=== PATIENT | female | born 1995 | race Caucasian/White ===

== ENCOUNTER 2019-11-18 03:11 | Inpatient (IN) ==
[2019-11-18] MEDS ORDERED: OXYTOCIN 30 UNITS/500 ML BAG IV PRN ×2 (03:50→07:49)
[2019-11-18] MEDS ORDERED: PENICILLIN G POTASSIUM 6 MU in DEXTROSE 5% 250 ML IV STA (03:50)
[2019-11-18] MEDS ORDERED: LACTATED RINGER'S 1,000 ML IV PRN (03:50)
[2019-11-18] MEDS ORDERED: PENICILLIN G POTASSIUM 3 MU in DEXTROSE 5% 100 ML IV PRN (03:50)
[2019-11-18 04:26] LABS: Hematocrit (blood only) 33.9 % (37-47); Hemoglobin 10.9 g/dL (12.0-16.0); Mean Corpuscular Hemoglobin 28.4 pg (25-34); Mean Corpuscular Volume 88.3 fL (80-100); Mean Platelet Volume 11.7 fL (7.4-10.4); Platelet Count 216 K/uL (130-400); RDW Coefficient of Variation 16.3 % (11.5-14.5); RDW Standard Deviation 52.4 fL (36.4-46.3); Red Blood Count 3.84 M/uL (4.2-5.4); White Blood Count 10.17 K/uL (4.8-10.8)
[2019-11-18 04:31] LABS: Mean Corpuscular Hgb Conc 32.2 g/dL (32-36)
[2019-11-18] MEDS ORDERED: fentaNYL citrate 100 MCG/2 ML VIAL ONE (05:55)
[2019-11-18] MEDS ORDERED: BUPIVACAINE 0.25% 30 ML VIAL ONE (05:55)
[2019-11-18] MEDS ORDERED: ePHEDrine sulfate 50 MG/ML AMP ONE (05:55)
[2019-11-18] MEDS ORDERED: fentaNYL 2MCG/ML ROPIV 1.25MG/ML 100 ML BAG EPI ONE (05:56)
[2019-11-18] MEDS ORDERED: NALOXONE HCL 0.4 MG/1 ML VIAL/CARP IV PRN (06:04)
[2019-11-18] MEDS ORDERED: NALBUPHINE HCL INJ 10 MG/ML AMP IV PRN (06:04)
[2019-11-18] MEDS ORDERED: DiphenhydrAMINE HCL 50 MG/ML VIAL IV PRN (06:04)
[2019-11-18] MEDS ORDERED: fentaNYL 2MCG/ML ROPIV 1.25MG/ML 100 ML BAG EPI PRN (06:04)
[2019-11-18] MEDS ORDERED: ePHEDrine sulfate 50 MG/ML AMP IV PRN (06:04)
[2019-11-18] MEDS ORDERED: NALOXONE HCL 1 MG in SODIUM CHLORIDE 0.9% 1000ML 1,000 ML IV PRN (06:04)
[2019-11-18] MEDS ORDERED: ONDANSETRON INJ 2 MG/ML 2 ML VIAL IV PRN (06:04)
--- NOTE | 2019-11-18 06:04 | Anesthesiology Consultation ---
Date of Service November 18, 2019 Assessment & Plan (1) Encounter for pre-operative examination: Chart Review Chart Review: Acceptable Risk for Labor Epidural Consults Requested none ASA ASA2 Proposed Anesthesia Anesthesia Type: Labor Epidural Risk / Benefits Reviewed With: PT / POA / Parent / Guardian, Accepts Plan and Informed Consent Obtained History Height/Weight Height: 5 ft 4 in Weight: 87.636 kg Allergies Allergy/AdvReac Type Severity Reaction Status Date / Time No Known Allergies Allergy Unverified 11/18/19 03:46 Medications Home Medications Medication Instructions Recorded Confirmed Last Taken ferrous sulfate 325 mg PO DAILY 11/18/19 11/18/19 11/15/19 08:00 vit no.[id number] 1 tab PO DAILY 11/18/19 11/18/19 11/17/19 20:00 [ Vitamin] Active Medications Generic Name Dose Route Start Last Admin Trade Name Freq PRN Reason Stop Dose Admin Lactated Ringer's 1,000 mls @ 125 mls/hr 11/18/19 03:50 11/18/19 05:25 Lr IV 11/20/19 03:49 125 mls/hr .Q8H PRN Infusion L&D Protocol Protocol Past Medical History Medical History Anemia affecting Exercise / Class Metabolic Activity II 4-5 Yardwork/Stairs/Walk up hill Past Anesthesia History No Hx of Anesthesia Complications and No Family Hx of Anesthesia Complications History of PONV No Hx of PONV and No Hx of Motion Sickness Social History Smoking Status: Never smoker Do You Dip or Chew Tobacco: No Hx Alcohol Use: No Hx Substance Use: No substance use type: does not use Physical Exam Vital Signs Last Vital Signs Temp 97.2 F L 11/18/19 05:25 Pulse 85 11/18/19 03:34 Resp 20 11/18/19 05:25 BP 128/78 11/18/19 03:34 ENMT Mouth: no dentition abnormality Thyromental Distance: > or= 3.5 Finger Breadths Mallampati Class: II Neck normal visual inspection Respiratory normal respiratory effort Auscultation: lungs clear to auscultation bilaterally Cardiovascular Rate/Rhythm: regular rate and regular rhythm Testing Laboratory Results 11/18/19 04:06
[2019-11-18] MEDS ORDERED: SUPERCREAM 0.870% 15 GM JAR EXT PRN (07:49)
[2019-11-18] MEDS ORDERED: bisacodyL 10 MG SUPP PR PRN (07:49)
[2019-11-18] MEDS ORDERED: ACETAMINOPHEN 325 MG TAB PO PRN (07:49)
[2019-11-18] MEDS ORDERED: HYDROCORTISONE ACETATE 25 MG SUPP PR PRN (07:49)
[2019-11-18] MEDS ORDERED: IBUPROFEN 600 MG TAB PO PRN (07:49)
[2019-11-18] MEDS ORDERED: DIPHTHERIA/TETANUS/PERTUSSIS 0.5 ML SYR/VIAL IM ONE (07:49)
--- NOTE | 2019-11-18 07:51 | Delivery Summary ---
Vaginal Delivery Summary Date of Service November 18, 2019 Vaginal Delivery Summary Delivery Noted live female TIA over intact perineum with delayed cord clamping and Apgars 9/9 weight pending. Cord blood obtained and placenta delivered spontaneously and intact. Small left sided vaginal tear inside introitus repaired with one figure of eight 0 Vicryl suture. EBL 200 ml. Final sponge needle and instrument count are correct. Mom and baby stable.
[2019-11-18] MEDS ORDERED: PRENATAL VITAMIN 1 TAB PO SCH (09:00)
[2019-11-18] MEDS ORDERED: NON-FORMULARY MEDICATION (Ferrous Sulfate 325 MG) PO SCH (09:00)
[2019-11-18] MEDS: PRENATAL VITAMIN 1 TAB PO SCH (09:27)
[2019-11-18] MEDS: DOCUSATE SODIUM 100 MG CAP PO SCH ×2 (09:27→21:59)
[2019-11-18] MEDS: FERROUS SULFATE 325 MG TAB PO SCH (09:27)
[2019-11-18] MEDS: BENZOCAINE 20% AER SPR 82.5 GM CAN EXT PRN (09:29)
[2019-11-18] MEDS ORDERED: CALCIUM CARBONATE 500 MG CHEWABLE TAB PO PRN (11:43)
[2019-11-19 06:38] LABS: Hematocrit (blood only) 28.7 % (37-47); Hemoglobin 9.1 g/dL (12.0-16.0); Mean Corpuscular Hgb Conc 31.7 g/dL (32-36); Mean Corpuscular Volume 88.3 fL (80-100); Platelet Count 187 K/uL (130-400); RDW Coefficient of Variation 16.6 % (11.5-14.5); RDW Standard Deviation 53.4 fL (36.4-46.3); Red Blood Count 3.25 M/uL (4.2-5.4); White Blood Count 13.89 K/uL (4.8-10.8)
[2019-11-19] MEDS: PRENATAL VITAMIN 1 TAB PO SCH (09:41)
[2019-11-19] MEDS: DOCUSATE SODIUM 100 MG CAP PO SCH ×2 (09:41→21:27)
[2019-11-19] MEDS: FERROUS SULFATE 325 MG TAB PO SCH (09:41)
--- NOTE | 2019-11-19 10:38 | Obstetrical Progress Note ---
Date of Service November 19, 2019 Assessment & Plan Admission and Anticipated Discharge Date Admission Date: November 18, 2019 Subjective PPD#1 passing gas tolerating diet baby staying for bili lights Physical Exam Constitutional: WD/WN, vitals as above comfortable abdomen soft fundus firm no edema neg Noel's plan for d/c in AM Results & Data ([facility]) Vital Signs (Past 12 Hours) Vital Signs Temp Pulse Resp BP Pulse Ox 11/19/19 08:00 36.8 C 67 16 130/70 99 11/19/19 03:40 36.8 C 73 18 107/67 11/19/19 00:20 37.1 C 80 18 123/73 Laboratory Results Laboratory Results - last 72 hr 11/18/19 11/19/19 04:06 06:23 WBC 10.17 13.89 H RBC 3.84 L 3.25 L Hgb 10.9 L 9.1 L Hct 33.9 L 28.7 L MCV 88.3 88.3 MCH 28.4 28.0 MCHC 32.2 31.7 L RDW Std Deviation 52.4 H 53.4 H RDW Coeff of Bridger 16.3 H 16.6 H Plt Count 216 187 MPV 11.7 H 11.0 H
[2019-11-19] MEDS ORDERED: bisacodyL 5 MG TABEC PO SCH (20:00)
[2019-11-20 06:01] LABS: Hematocrit (blood only) 27.8 % (37-47); Hemoglobin 8.7 g/dL (12.0-16.0)
[2019-11-20] MEDS: FERROUS SULFATE 325 MG TAB PO SCH (08:58)
[2019-11-20] MEDS: PRENATAL VITAMIN 1 TAB PO SCH (08:58)
[2019-11-20] MEDS: DOCUSATE SODIUM 100 MG CAP PO SCH (08:59)
--- NOTE | 2019-11-20 10:19 | Obstetrical Progress Note ---
Date of Service November 20, 2019 Assessment & Plan Admission and Anticipated Discharge Date Admission Date: November 18, 2019 Subjective Patient is seen and examined. She feels well, no complaints. Ambulating without dizziness Voiding without difficulty Tolerating regular diet with out N&V Bleeding is minimal No fever/ chills/ CP/ SOB/ N&V/ Leg pain Breast feeding without problems Vital Signs Temp Pulse Resp BP Pulse Ox 11/20/19 00:30 36.9 C 67 16 105/65 11/19/19 19:35 37.1 C 73 18 104/65 11/19/19 15:30 37.0 C 80 16 115/70 98 Lab Results 11/18/19 11/19/19 11/20/19 Range/Units 04:06 06:23 05:51 WBC 10.17 13.89 H (4.8-10.8) K/uL RBC 3.84 L 3.25 L (4.2-5.4) M/uL Hgb 10.9 L 9.1 L 8.7 L (12.0-16.0) g/dL Hct 33.9 L 28.7 L 27.8 L (37-47) % MCV 88.3 88.3 (80-100) fL MCH 28.4 28.0 (25-34) pg MCHC 32.2 31.7 L (32-36) g/dL RDW Std Deviation 52.4 H 53.4 H (36.4-46.3) fL RDW Coeff of Bridger 16.3 H 16.6 H (11.5-14.5) % Plt Count 216 187 (130-400) K/uL MPV 11.7 H 11.0 H (7.4-10.4) fL PE: General: Alert, orientedx3, NAD Abd: soft, NT, fundus firm, below Umbilicus Perineum intact, Lochia rubra minimal Ext; NT, no edema AP: 24 yo s/p , ppd# 2 VSS Afebrile doing well Continue routine care All questions were answered Discussed when to call D/C home , f/u in office Results & Data ([facility]) Vital Signs (Past 12 Hours) Vital Signs Temp Pulse Resp BP 11/20/19 00:30 36.9 C 67 16 105/65
[2019-11-20] MEDS: BENZOCAINE 20% AER SPR 82.5 GM CAN EXT PRN (14:27)
== END 2019-11-20 15:05 | disposition home or self-care (01) | DRG 807 ==
LOC: EDSTATUS 03:11 → OPB 03:11 → 4S1 03:13 → 4S2 10:00

== ENCOUNTER 2021-05-03 07:41 | Inpatient (IN) ==
[2021-05-03] MEDS ORDERED: OXYTOCIN 30 UNITS/500 ML BAG IV PRN ×2 (09:48→17:24)
[2021-05-03] MEDS ORDERED: PENICILLIN G POTASSIUM 6 MU in DEXTROSE 5% 250 ML IV STA (09:48)
--- NOTE | 2021-05-03 09:56 | History & Physical Report ---
Date of Service May 03, 2021 Assessment & Plan (1) Post-term , 40-42 weeks of gestation: Plan: 26 yo at 40.2 wks, IOL for postdates VSS Afebrile doing well GBS+ FHR reassuring Cervix not favorable Plan to admit, monitor, cervical ripening with Cervidil PCN for GBS All questions were answered (2) GBS (group B Streptococcus carrier), +RV culture, currently : (3) Anemia affecting in third trimester: Admission and Anticipated Discharge Date Admission Date: May 03, 2021 History of Present Illness Primary Care Provider: Chioma Bowie DO Patient is a 26 yo at 40.2 wks who was scheduled for IOL for postdates No complaints Irregular ctxs for 2 days, not painful. No LOF/VB +FM's Her has been uncomplicated except 1) Anemic, not using iron 2) GBS+ 3) Close interval Allergies Allergy/AdvReac Type Severity Reaction Status Date / Time No Known Allergies Allergy Unverified 11/18/19 03:46 Home Medications Medication Instructions Recorded Confirmed Type ferrous sulfate 325 mg (65 mg 325 mg PO DAILY 11/18/19 05/03/21 History iron) tablet vits no.124-ferrous fum 1 tab PO DAILY 11/18/19 05/03/21 History 27 mg iron-folic acid 800 mcg tablet ( Vitamin) Patient History Medical History Anemia affecting No known health problems Surgical History No history of previous surgery Social History Smoking Status: Never smoker Second Hand Exposure: No; Hx Alcohol Use: No Hx Substance Use: No Preferred Language: Bangladeshi Communication Ability: Effective 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 Beliefs That Will Affect Care: None marital status: Current Living Situation: Spouse Other Information That Helps Us Care for You: No Feels Safe at Home: Yes Safety Concerns: Feels Safe At This Time Assistive Devices: None 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 h/o HSV/ Chlamydia/ GC Review of Systems as per Subjective / HPI Physical Exam Constitutional: well developed and well nourished Confortable, NAD Gastrointestinal (Abdomen): normal bowel sounds, soft, nontender, no hepatosplenomegaly (Gravid) Inspection/Auscultation: abdomen normal to inspection and + abdomen distended (Bradley 8 lb) Genitourinary: normal external appearance OB Exam Abdomen: + vertex Manual OB Exam: + cervical dilation 1 cm, + cervical effacement 20% and + station high OB Exam Monitor Tracing: + external uterine monitor used and + category I Results & Data ([facility]) Vital Signs (Past 12 Hours) Vital Signs Temp Pulse Resp BP 05/03/21 08:50 36.8 C 20 05/03/21 07:55 96 H 98/61 L Laboratory Results Lab Results 05/03/21 05/03/21 Range/Units 07:58 07:58 COVID-19 Eval Order Covid19 [facility] SARS-CoV-2, RNA, NAAT NEGATIVE (NEGATIVE)
[2021-05-03] MEDS ORDERED: DINOPROSTONE 10 MG INSERT PV ONE (10:00)
[2021-05-03 10:18] LABS: Hematocrit (blood only) 31.8 % (37-47); Hemoglobin 9.8 g/dL (12.0-16.0); Mean Corpuscular Hemoglobin 27.6 pg (25-34); Mean Corpuscular Hgb Conc 30.8 g/dL (32-36); Mean Corpuscular Volume 89.6 fL (80-100); Mean Platelet Volume 10.7 fL (7.4-10.4); Platelet Count 208 K/uL (130-400); RDW Coefficient of Variation 16.7 % (11.5-14.5); RDW Standard Deviation 55.2 fL (36.4-46.3); Red Blood Count 3.55 M/uL (4.2-5.4); White Blood Count 6.93 K/uL (4.8-10.8)
[2021-05-03] MEDS ORDERED: PENICILLIN G POTASSIUM 3 MU in DEXTROSE 5% 100 ML IV PRN (12:48)
[2021-05-03] MEDS: LACTATED RINGER'S 1,000 ML IV PRN ×2 (14:09→15:00)
[2021-05-03] MEDS ORDERED: fentaNYL citrate 100 MCG/2 ML VIAL ONE (14:13)
[2021-05-03] MEDS ORDERED: BUPIVACAINE 0.25% 30 ML VIAL ONE (14:13)
[2021-05-03] MEDS ORDERED: ePHEDrine sulfate 50 MG/ML AMP ONE (14:13)
[2021-05-03] MEDS ORDERED: fentaNYL 2MCG/ML ROPIVACAINE 1.25MG/ML 100 ML BAG EPI ONE (14:13)
[2021-05-03] MEDS ORDERED: SODIUM CHLORIDE 0.9% INJ 10 ML VIAL ONE (14:13)
--- NOTE | 2021-05-03 15:01 | Anesthesiology Consultation ---
Date of Service May 03, 2021 Assessment & Plan (1) Encounter for pre-operative examination: Chart Review Chart Review: Acceptable Risk for Labor Epidural Consults Requested none ASA ASA2 Proposed Anesthesia Anesthesia Type: Labor Epidural Risk / Benefits Reviewed With: PT / POA / Parent / Guardian, Accepts Plan and Informed Consent Obtained History Height/Weight Height: 5 ft 4 in Weight: 83.915 kg Allergies Allergy/AdvReac Type Severity Reaction Status Date / Time No Known Allergies Allergy Unverified 11/18/19 03:46 Medications Home Medications Medication Instructions Recorded Confirmed Last Taken ferrous sulfate 325 mg (65 mg 325 mg PO DAILY 11/18/19 05/03/21 11/15/19 08:00 iron) tablet vits no.124-ferrous fum 1 tab PO DAILY 11/18/19 05/03/21 11/17/19 20:00 27 mg iron-folic acid 800 mcg tablet ( Vitamin) Active Medications Generic Name Dose Route Start Last Admin Trade Name Freq PRN Reason Stop Dose Admin Lactated Ringer's 1,000 mls @ 150 mls/hr 05/03/21 09:48 05/03/21 15:00 Lr IV 05/05/21 09:47 150 mls/hr .Q6H40M PRN Administration L&D Protocol Protocol Past Medical History Medical History Anemia affecting No known health problems Exercise / Class Metabolic Activity II 4-5 Yardwork/Stairs/Walk up hill Past Surgical History Surgical History No history of previous surgery Past Anesthesia History No Hx of Anesthesia Complications and No Family Hx of Anesthesia Complications History of PONV No Hx of PONV and No Hx of Motion Sickness Social History Smoking Status: Never smoker Hx Alcohol Use: No Hx Substance Use: No substance use type: does not use Physical Exam Vital Signs Last Vital Signs Temp 98.2 F 05/03/21 08:50 Pulse 78 05/03/21 12:38 Resp 20 05/03/21 14:00 BP 116/68 05/03/21 12:38 ENMT Mouth: no dentition abnormality Thyromental Distance: > or= 3.5 Finger Breadths Mallampati Class: II Neck normal visual inspection Respiratory normal respiratory effort Auscultation: lungs clear to auscultation bilaterally Cardiovascular Rate/Rhythm: regular rate and regular rhythm Testing Laboratory Results 05/03/21 10:03
[2021-05-03] MEDS ORDERED: diphenhydrAMINE 50 MG/ML VIAL IV PRN (15:20)
[2021-05-03] MEDS ORDERED: ONDANSETRON INJ 2 MG/ML 2 ML VIAL IV PRN (15:20)
[2021-05-03] MEDS ORDERED: NALOXONE HCL 1 MG in SODIUM CHLORIDE 0.9% 1000ML 1,000 ML IV PRN (15:20)
[2021-05-03] MEDS ORDERED: NALOXONE HCL 0.4 MG/1 ML VIAL/CARP IV PRN (15:20)
[2021-05-03] MEDS ORDERED: NALBUPHINE HCL INJ 10 MG/ML AMP IV PRN (15:20)
[2021-05-03] MEDS ORDERED: ePHEDrine sulfate 50 MG/ML AMP IV PRN (15:20)
[2021-05-03] MEDS ORDERED: fentaNYL 2MCG/ML ROPIVACAINE 1.25MG/ML 100 ML BAG EPI PRN (15:20)
[2021-05-03] MEDS ORDERED: FLUCONAZOLE 50 MG TAB PO ONE (15:54)
--- NOTE | 2021-05-03 15:57 | Obstetrical Progress Note ---
Date of Service May 03, 2021 Assessment & Plan Admission and Anticipated Discharge Date Admission Date: May 03, 2021 Subjective Patient is reevaluated She had hyperstimulation about 3hours after Cervidil was placed. It was removed and she was given IVF She has received epidural for pain and now comfortable. VE; 4/ 60-70%/ -2, AROM'ed clear fluid, candidal type discharge+ FHR categ I Rockwell: ctxs q 2-3 min Diflucan 1 tb once 2nd dose of PCN being given Continue to monitor closely Results & Data ([facility]) Vital Signs (Past 12 Hours) Vital Signs Temp Pulse Resp BP Pulse Ox 05/03/21 15:51 69 100 05/03/21 15:49 70 116/65 05/03/21 15:46 71 100 05/03/21 15:42 75 112/63 05/03/21 15:41 76 100 05/03/21 15:36 71 118/67 98 05/03/21 15:34 67 117/64 05/03/21 15:32 67 117/64 05/03/21 15:31 69 98 05/03/21 15:30 73 114/67 05/03/21 15:28 66 115/64 05/03/21 15:26 67 108/62 99 05/03/21 15:24 72 115/65 05/03/21 15:22 64 118/60 05/03/21 15:21 73 119/56 L 100 05/03/21 15:18 67 123/75 05/03/21 15:16 74 118/64 100 05/03/21 15:14 71 110/60 05/03/21 15:11 73 100 05/03/21 15:06 73 100 05/03/21 15:02 75 134/70 05/03/21 15:01 73 100 05/03/21 14:00 20 05/03/21 12:38 78 116/68 05/03/21 08:50 36.8 C 20 05/03/21 07:55 96 H 98/61 L
[2021-05-03] MEDS ORDERED: METHYLERGONOVINE MALEATE 0.2 MG/ML AMP ONE (17:17)
[2021-05-03] MEDS ORDERED: METHYLERGONOVINE MALEATE 0.2 MG/ML AMP IM ONE (17:24)
[2021-05-03] MEDS ORDERED: HYDROCORTISONE ACETATE 25 MG SUPP PR PRN (17:24)
[2021-05-03] MEDS ORDERED: bisacodyL 10 MG SUPP PR PRN (17:24)
[2021-05-03] MEDS ORDERED: miSOPROStoL 200 MCG TAB PR ONE ×2 (17:24)
[2021-05-03] MEDS ORDERED: ACETAMINOPHEN 325 MG TAB PO PRN (17:24)
[2021-05-03] MEDS ORDERED: SUPERCREAM 0.870% 15 GM JAR EXT PRN (17:24)
[2021-05-03] MEDS ORDERED: BENZOCAINE 20% AER SPR 82.5 GM CAN EXT PRN (17:24)
[2021-05-03] MEDS ORDERED: MEASLES, MUMPS & RUBELLA VIRUS VIAL SQ ONE (17:24)
[2021-05-03] MEDS ORDERED: DIPHTHERIA/TETANUS/PERTUSSIS 0.5 ML SYR/VIAL IM ONE (17:24)
--- NOTE | 2021-05-03 17:32 | Delivery Summary ---
Vaginal Delivery Summary Date of Service May 03, 2021 Vaginal Delivery Summary Patient was found to be with a had on her perineum and quickly, precipitously delivered by nursing team at 17:01 PM. Baby was vigorously moving and crying. Cord was clamped times and cut at 1 minute delay. I came into the room and mom and baby were bonding and were stable. I checked the perineum and vagina and those were intact, no lacerations were found. Placenta was then found to be in the vagina, delivered spontaneously as intact and complete. There came a gush of blood right after placenta. I checked the uterine cavity manually and it was found to be empty. I emptied some smaller clots from lower segments and fundus was firm and contracted. IV Pitocin was started as bolus and 800 mcg of Cytotec were given rectally. She was also given IM Methergine. The bleeding was minimal at the point. Mom and baby tolerated procedure well. The baby was a viable female infant, Apgars 8/10, weight is pending. No complications happened. EBL was 650 ml.
[2021-05-03] MEDS ORDERED: miSOPROStoL 200 MCG TAB ONE (17:33)
[2021-05-03] MEDS: METHYLERGONOVINE MALEATE 0.2 MG TAB PO SCH ×2 (18:25→20:54)
--- NOTE | 2021-05-03 20:45 | Anesthesia Procedure Note ---
Date of Service May 03, 2021 Anesthesia Post Epidural Note Vital Signs Vital Signs: Temp Pulse Resp BP Pulse Ox 98.1 F 74 18 116/64 100 05/03/21 17:31 05/03/21 19:16 05/03/21 19:16 05/03/21 19:16 05/03/21 17:16 Notes Mental Status: alert / awake / arousable and participated in evaluation Nausea / Vomiting: adequately controlled Pain: adequately controlled Airway Patency, RR, SpO2: stable & adequate BP & HR: stable & adequate Hydration State: stable & adequate Neuraxial Anesthesia: was administered and sensory block is resolving Anesthetic Complications: no major complications apparent and Pt Satisfied with anesthetic care Epidural: Removed without complications and With tip intact
[2021-05-03] MEDS: FERROUS SULFATE 325 MG TAB PO SCH (20:51)
[2021-05-03] MEDS: DOCUSATE SODIUM 100 MG CAP PO SCH (20:54)
[2021-05-04 07:17] LABS: Hematocrit (blood only) 32.2 % (37-47); Hemoglobin 10.2 g/dL (12.0-16.0); Mean Corpuscular Hemoglobin 28.3 pg (25-34); Mean Corpuscular Hgb Conc 31.7 g/dL (32-36); Mean Corpuscular Volume 89.2 fL (80-100); Platelet Count 201 K/uL (130-400); RDW Coefficient of Variation 16.6 % (11.5-14.5); RDW Standard Deviation 53.7 fL (36.4-46.3); Red Blood Count 3.61 M/uL (4.2-5.4); White Blood Count 13.78 K/uL (4.8-10.8)
[2021-05-04] MEDS: IBUPROFEN 600 MG TAB PO PRN ×3 (07:46→16:33)
[2021-05-04] MEDS ORDERED: PRENATAL VITAMIN 1 TAB PO SCH (08:00)
[2021-05-04] MEDS: METHYLERGONOVINE MALEATE 0.2 MG TAB PO SCH ×3 (08:47→16:34)
[2021-05-04] MEDS: DOCUSATE SODIUM 100 MG CAP PO SCH (08:48)
[2021-05-04] MEDS: FERROUS SULFATE 325 MG TAB PO SCH (08:48)
--- NOTE | 2021-05-04 10:23 | Obstetrical Progress Note ---
Date of Service May 04, 2021 Assessment & Plan (1) Normal course: PPD #1 Pt doing well pt wishes to go home D/C home with instructions Subjective Ambulation: ambulating normally Voiding: no voiding problems Passing Gas:: Yes Diet Tolerance:: regular diet Lochia:: Small Feeding Type:: breast feeding Review of Systems All systems reviewed & are unremarkable except as noted in HPI & below Physical Exam Constitutional WD/WN, vitals as above well developed and well nourished Eyes PERRL, conjunctivae normal, anicteric sclerae Neck trachea midline, no thyromegaly Respiratory normal respiratory effort, lungs clear to auscultation Auscultation: no crackles, no rales and no wheezes Cardiovascular RRR, no murmur, no edema Gastrointestinal (Abdomen) normal bowel sounds, soft, nontender, no hepatosplenomegaly Uterus is below umbilicus Musculoskeletal no cyanosis or clubbing, extremities motor strength 5/5 Skin no rashes, warm and dry Neurologic patellar DTR's 2+ bilat, sensation intact Psychiatric A+Ox3, euthymic affect Genitourinary normal external appearance Results & Data ([facility]) Vital Signs (Past 12 Hours) Vital Signs Temp Pulse Resp BP Pulse Ox 05/04/21 07:43 37.0 C 82 18 108/68 98 05/04/21 02:41 37.5 C 83 18 107/69 05/03/21 23:30 37.4 C 80 18 122/77
[2021-05-04] MEDS ORDERED: bisacodyL 5 MG TABEC PO SCH (20:00)
== END 2021-05-04 18:26 | disposition home or self-care (01) | DRG 807 ==
LOC: 4S1 07:41 → 4S2 19:49

== ENCOUNTER 2022-04-02 11:43 | Observation (INO) ==
--- NOTE | 2022-04-02 12:47 | Obstetrical Progress Note ---
Date of Service April 02, 2022 Subjective Patient called office and stated she feels FM's but decreased and different, in her lower pelvis. Does not feel kicks under her ribs anymore. She was recommended to come in for NST 27 yo at 37.2 wks She felt more movements since she came, at least 10, but in lower pelvis. No ctxs/ LOF/VB NST reactive Bed side US: Breech, AFV adequate, placenta posterior, BPP 02/25 Discussed the findings, breech ECV vs primary Vsection Discussed the risks and benefits of each in details. She decided to schedule Primary Csection All questions were answered. Results & Data ([facility]) Vital Signs (Past 12 Hours) Vital Signs Pulse BP 04/02/22 12:00 90 122/70
== END 2022-04-02 12:40 | disposition home or self-care (01) ==
LOC: OPB 11:43 → 4E1 11:43

== ENCOUNTER 2022-04-04 01:46 | Inpatient (IN) ==
--- NOTE | 2022-04-04 02:10 | History & Physical Report ---
Date of Service April 04, 2022 History of Present Illness Chief Complaint: onset of labor Primary Care Provider: Chioma Bowie, 27 F P2002 at term admitted in active labor fully dilated with breech pr esentation present on admission confirmed by bedside ultrasound. Allergies Allergy/AdvReac Type Severity Reaction Status Date / Time No Known Allergies Allergy Unverified 11/18/19 03:46 Home Medications Medication Instructions Recorded Confirmed Type ferrous sulfate 325 mg (65 mg 325 mg PO DAILY 11/18/19 05/03/21 History iron) tablet vits no.124-ferrous fum 1 tab PO DAILY 11/18/19 04/02/22 History 27 mg iron-folic acid 800 mcg tablet ( Vitamin) ibuprofen 600 mg tablet 600 mg PO Q4H #20 tabs 05/04/21 Rx Patient History Medical History Anemia affecting No known health problems Surgical History No history of previous surgery Social History Smoking Status: Never smoker Second Hand Exposure: No; Hx Alcohol Use: No Hx Substance Use: No Preferred Language: Guatemalan Communication Ability: Effective 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 Beliefs That Will Affect Care: None marital status: Current Living Situation: Spouse Feels Safe at Home: Yes Assistive Devices: None 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 Review of Systems All systems reviewed & are unremarkable except as noted in HPI & below Physical Exam Constitutional: WD/WN, vitals as above Eyes: PERRL, conjunctivae normal, anicteric sclerae Respiratory: normal respiratory effort, lungs clear to auscultation Cardiovascular: RRR, no murmur, no edema Musculoskeletal: Extremities: extremities normal to inspection Skin: no rashes, warm and dry Neurologic: patellar DTR's 2+ bilat, sensation intact Psychiatric: A+Ox3, euthymic affect Genitourinary: no vaginal lesions, no adnexal mass OB Exam Abdomen: + fundal height and + breech Manual OB Exam: + cervical dilation 10 cm, + cervical effacement 100% and + station high OB Exam Monitor Tracing: + external FHT monitor used, + external uterine monitor used and + category I Breech confirmed by bedside ultrsound Results & Data ([facility]) Vital Signs (Past 12 Hours) Vital Signs Pulse BP 04/04/22 01:55 109 H 133/84 Code Status & VTE Plan VTE Prophylaxis Plan VTE Prophylaxis will be ordered: No Monitoring External Monitor Cat 1
[2022-04-04] MEDS ORDERED: LACTATED RINGER'S 1,000 ML IV SCH (02:15)
[2022-04-04] MEDS ORDERED: ceFAZolin 2000MG 2,000 MG/15 ML SYR IV SCH (02:30)
[2022-04-04] MEDS ORDERED: IBUPROFEN 600 MG TAB PO ONE (02:42)
[2022-04-04] MEDS ORDERED: IBUPROFEN 600 MG TAB PO SCH (02:43)
[2022-04-04] MEDS ORDERED: HYDROCORTISONE ACETATE 25 MG SUPP PR PRN (02:43)
[2022-04-04] MEDS ORDERED: ACETAMINOPHEN 325 MG TAB PO PRN (02:43)
[2022-04-04] MEDS ORDERED: DIPHTHERIA/TETANUS/PERTUSSIS 0.5 ML SYR/VIAL IM ONE (02:43)
[2022-04-04] MEDS ORDERED: OXYTOCIN 30 UNITS/500 ML BAG IV PRN (02:43)
[2022-04-04] MEDS ORDERED: BENZOCAINE 20% AER SPR 82.5 GM CAN EXT PRN (02:43)
--- NOTE | 2022-04-04 02:43 | Delivery Summary ---
Vaginal Delivery Summary Date of Service April 04, 2022 Vaginal Delivery Summary 27 F P2002 at 37.6 weeks presents to L&D fully dilated with membranes bulging and presenting part high. Bedside ultrasound by me confirmed breech. Upon getting the patient ready for the OR her membranes ruptured spontaneously and a single foot presented. I reached in and grabbed the other foot and delivered the baby as a double footling breech with nuchal cord x1 reduced at time of the delivery with aid of Icetddds-Eiyukbi-Vhck maneuver. Live female with delayed cord clamping and Apgars 7/9 weight pending. Cord blood obtained followed by spontaneous delivery of intact placenta. No tears. Final sponge and instrument counts are correct. Mom and baby stable. EBL 100 ml. Mom and baby stable.
[2022-04-04] MEDS: IBUPROFEN 600 MG TAB PO PRN (07:55)
[2022-04-04] MEDS: DOCUSATE SODIUM 100 MG CAP PO SCH ×2 (07:55→21:01)
[2022-04-04] MEDS: PRENATAL VITAMIN 1 TAB PO SCH (07:55)
[2022-04-04] MEDS: FERROUS SULFATE 325 MG TAB PO SCH (07:55)
[2022-04-04] MEDS ORDERED: PRENATAL VITAMIN 1 TAB PO SCH (09:00)
[2022-04-04] MEDS ORDERED: FERROUS SULFATE 325 MG TAB PO SCH (09:00)
[2022-04-04] MEDS ORDERED: COUGH DROP (SUGAR FREE) LOZ 24 LOZ/1 BOX BUCCAL ONE (22:23)
--- NOTE | 2022-04-05 00:20 | Obstetrical Progress Note ---
Date of Service April 05, 2022 Assessment & Plan Admission and Anticipated Discharge Date Admission Date: April 04, 2022 Subjective Patient is seen and examined. She feels well, no complaints. Ambulating without dizziness Voiding without difficulty Tolerating regular diet with out N&V Bleeding is minimal No fever/ chills/ CP/ SOB/ N&V/ Leg pain Breast feeding without problems Baby is staying due to hyperbiliribunemia Vital Signs Temp Pulse Resp BP Pulse Ox O2 Del Method 04/05/22 07:40 37.1 C 72 16 114/72 99 Room Air 04/04/22 23:33 37.1 C 65 18 123/76 96 Room Air Lab Results 04/05/22 Range/Units 07:52 WBC 14.89 H (4.8-10.8) K/ul RBC 3.81 L (3.93-5.22) M/uL Hgb 11.3 L (12.0-16.0) g/dl Hct 35.6 (34.1-44.9) % MCV 93.4 (80.0-100.0) fL MCH 29.7 (25.0-34.0) pg MCHC 31.7 L (32.0-36.0) g/dL RDW Std Deviation 64.0 H (36.4-46.3) fL RDW Coeff of Bridger 18.6 H (11.5-14.5) % Plt Count 230 (130-400) K/uL MPV 10.5 (9.4-12.3) fL PE: General: Alert, orientedx3, NAD Abd: soft, NT, fundus firm, below Umbilicus Perineum intact, Lochia rubra minimal Ext; NT, no edema AP: 27 yo s/p , vaginal breech, ppd# 1 VSS Afebrile doing well Continue routine care All questions were answered D/C home tomorrow Results & Data ([facility]) Vital Signs (Past 12 Hours) Vital Signs Temp Pulse Resp BP Pulse Ox O2 Del Method 04/04/22 23:33 37.1 C 65 18 123/76 96 Room Air 04/04/22 19:13 37 C 80 18 110/68 98 Room Air 04/04/22 15:39 37.1 C 68 18 114/69 98 Room Air
[2022-04-05] MEDS: FERROUS SULFATE 325 MG TAB PO SCH (07:48)
[2022-04-05] MEDS: PRENATAL VITAMIN 1 TAB PO SCH (07:48)
[2022-04-05] MEDS: IBUPROFEN 600 MG TAB PO PRN ×2 (07:48→18:40)
[2022-04-05] MEDS: DOCUSATE SODIUM 100 MG CAP PO SCH (07:48)
[2022-04-05 08:05] LABS: Hematocrit (blood only) 35.6 % (34.1-44.9); Hemoglobin 11.3 g/dl (12.0-16.0); Mean Corpuscular Hemoglobin 29.7 pg (25.0-34.0); Mean Corpuscular Hgb Conc 31.7 g/dL (32.0-36.0); Mean Corpuscular Volume 93.4 fL (80.0-100.0); Mean Platelet Volume 10.5 fL (9.4-12.3); Platelet Count 230 K/uL (130-400); RDW Coefficient of Variation 18.6 % (11.5-14.5); Red Blood Count 3.81 M/uL (3.93-5.22); White Blood Count 14.89 K/ul (4.8-10.8)
--- NOTE | 2022-04-05 15:43 | Obstetrical Progress Note ---
Date of Service April 05, 2022 Assessment & Plan Admission and Anticipated Discharge Date Admission Date: April 04, 2022 Subjective [place] [facility] Patient desires to be discharged No complaints. Discussed when to call. Results & Data ([facility]) Vital Signs (Past 12 Hours) Vital Signs Temp Pulse Resp BP Pulse Ox O2 Del Method 04/05/22 07:40 37.1 C 72 16 114/72 99 Room Air
[2022-04-05] MEDS ORDERED: bisacodyL 5 MG TABEC PO SCH (20:00)
[2022-04-06] MEDS ORDERED: bisacodyL 10 MG SUPP PR PRN (06:00)
== END 2022-04-05 19:25 | disposition home or self-care (01) | DRG 788 ==
LOC: OPB 01:46 → 4S1 01:48 → 4E2 05:33